=== PATIENT | male | born 1990 | race Two or more races ===

== ENCOUNTER 2018-02-21 04:08 | Emergency (ER) | payer OTHER ==
[~2018-02-21] VITALS: Ht 165.1 cm; Wt 63.5 kg
[2018-02-21] MEDS ORDERED: AMOX-CLAV 875-1 EACH PO (07:26)
[2018-02-21] MEDS ORDERED: INTESTINEX680 M1 PO (07:27)
[2018-02-21] MEDS ORDERED: CELEBREX200MG PO (07:27)
== END 2018-02-21 07:35 | disposition home or self-care (01) ==
LOC: ER 04:08
DX: S61.012A Laceration without foreign body of left thumb without damage to nail, initial encounter (principal); W45.8XXA Other foreign body or object entering through skin, initial encounter; Y93.89 Activity, other specified; Y92.89 Other specified places as the place of occurrence of the external cause; Y99.8 Other external cause status

== ENCOUNTER 2018-02-27 20:22 | Emergency (ER) | payer OTHER ==
[~2018-02-27] VITALS: Ht 165.1 cm; Wt 63.5 kg
[~2018-02-27 20:22] MED LIST: AMOX-CLAV 875-1 EACH PO; CELEBREX200MG PO; INTESTINEX680 M1 PO
== END 2018-02-27 22:35 | disposition home or self-care (01) ==
LOC: ER 20:22
DX: Z48.02 Encounter for removal of sutures (principal)

== ENCOUNTER 2019-06-17 20:35 | Emergency (ER) | payer OTHER ==
[~2019-06-17] VITALS: Ht 167.6 cm; Wt 68.0 kg
== END 2019-06-17 23:36 | disposition home or self-care (01) ==
LOC: ER 20:35
DX: M54.2 Cervicalgia (principal)